=== PATIENT | male | born 2000 | race African-American/Black ===

== ENCOUNTER → 2020-11-16 | Outpatient (CLI) | payer OTHER ==
--- NOTE | 2020-11-16 12:40 | RAD ---
EXAM: Bilateral ankles, 2 views. HISTORY: Pain. COMPARISON: None. FINDINGS: 2 views of both ankles are obtained. There is internal fixation of a distal right tibial fr acture with a plate and multiple screws. There are also fixation screws within the left medial malleo aishwarya. There is no acute fracture, dislocation or subluxation. The ankle mortise these are intact. Ther e is no osteochondral lesion. IMPRESSION: 1. Internal fixation of the distal right tibia and left medial malleolus. 2. No acute osseous finding. Electronically signed by: Indira Brennan MD (11/16/2020 12:37 PM) [id number]
== END ==
LOC: RAD 11:52
PROVIDERS: ATTEND Anesthesiology Pain Medicine
DX: Z02.71 Encounter for disability determination (principal); M25.571 Pain in right ankle and joints of right foot; M25.572 Pain in left ankle and joints of left foot
CPT/HCPCS: 73600